=== PATIENT | male | born 1985 | race African-American/Black ===

== ENCOUNTER 2021-07-27 10:43 | Inpatient (IN) | payer OTHER ==
[~2021-07-27] VITALS: Ht 185.4 cm; Wt 84.5 kg
[2021-07-27] VITALS (7 sets, daily range): BP systolic 120–133; BP diastolic 74–85
--- NOTE | 2021-07-27 10:52 | PHYS DOC ---
Past Medical History Past Medical History: No Pertinent History (NURY ASENCIO APRN) Past Surgical History: No Surgical History (NURY ASENCIO APRN) Smoking Status: Never Smoker Alcohol Use: Occasionally Drug Use: None (NURY ASENCIO APRN) General Adult EDM: Chief Complaint: ABDOMINAL PAIN HPI: HPI: Patient is a 35-year-old male who presents today with right lower quadrant abdominal pain. 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 Patient states he was in his normal health before this incident, he states that he does not not have any fever or chills at this time, patient states that he has not been ill in the last 24 hours as well. Patient denies any past medical history, past surgical history, says he does not smoke, he does drink and occasionally and does not use any drugs. (NURY ASENCIO APRN) Review of Systems: Review of Systems: Constitutional: Denies fever or chills. [] Eyes: Denies change in visual acuity. [] HENT: Denies nasal congestion or sore throat. [] Respiratory: Denies cough or shortness of breath. [] Cardiovascular: Denies chest pain or edema. [] GI: abdominal pain, nausea, DENIES vomiting, bloody stools or diarrhea. [] : Denies dysuria. [] Musculoskeletal: Denies back pain or joint pain. [] Integument: Denies rash. [] Neurologic: Denies headache, focal weakness or sensory changes. [] Endocrine: Denies polyuria or polydipsia. [] Lymphatic: Denies swollen glands. [] Psychiatric: Denies depression or anxiety. [] (NURY ASENCIO APRN) Heart Score: C/O Chest Pain: No Risk Factors: Risk Factors: DM, Current or recent (<one month) smoker, HTN, HLP, family history of CAD, obesity. Risk Scores: Score 0 - 3: 2.5% MACE over next 6 weeks - Discharge Home Score 4 - 6: 20.3% MACE over next 6 weeks - Admit for Clinical Observation Score 7 - 10: 72.7% MACE over next 6 weeks - Early Invasive Strategies (NURY ASENCIO APRN) Physical Exam: PE: Constitutional: Well developed, well nourished, MILD distress, non-toxic appearance. [] HENT: Normocephalic, atraumatic, bilateral external ears normal, oropharynx moist, no oral exudates, nose normal. [] Eyes: PERRLA, EOMI, conjunctiva normal, no discharge. [] Neck: Normal range of motion, no tenderness, supple, no stridor. [] Cardiovascular:Heart rate regular rhythm, no murmur [] Lungs & Thorax: Bilateral breath sounds clear to auscultation [] Abdomen: Abdomen is flat and firm, patient is guarded in the right lower quadrant, patient has tenderness throughout but greater in the right lower quadrant, bowel sounds are hypoactive Skin: Warm, dry, no erythema, no rash. [] Back: No tenderness, no CVA tenderness. [] Extremities: No tenderness, no cyanosis, no clubbing, ROM intact, no edema. [] Neurologic: Alert and oriented X 3, normal motor function, normal sensory function, no focal deficits noted. [] Psychologic: Affect normal, judgement normal, mood normal. [] (NURY ASENCIO APRN) Current Patient Data: Labs: Laboratory Tests Test 07/27/21 10:55 White Blood Count 3.2 x10^3/uL Red Blood Count 5.17 x10^6/uL Hemoglobin 14.4 g/dL Hematocrit 42.9 % Mean Corpuscular Volume 83 fL Mean Corpuscular Hemoglobin 28 pg Mean Corpuscular Hemoglobin Concent 34 g/dL Red Cell Distribution Width 13.6 % Platelet Count 123 x10^3/uL Neutrophils (%) (Auto) 60 % Lymphocytes (%) (Auto) 29 % Monocytes (%) (Auto) 10 % Eosinophils (%) (Auto) 1 % Basophils (%) (Auto) 1 % Neutrophils # (Auto) 1.9 x10^3/uL Lymphocytes # (Auto) 0.9 x10^3/uL Monocytes # (Auto) 0.3 x10^3/uL Eosinophils # (Auto) 0.0 x10^3/uL Basophils # (Auto) 0.0 x10^3/uL Sodium Level 143 mmol/L Potassium Level 4.2 mmol/L Chloride Level 108 mmol/L Carbon Dioxide Level 25 mmol/L Anion Gap 10 Blood Urea Nitrogen 17 mg/dL Creatinine 1.1 mg/dL Estimated GFR (Cockcroft-Gault) 92.2 BUN/Creatinine Ratio 15 Glucose Level 115 mg/dL Lactic Acid Level 0.6 mmol/L Calcium Level 8.7 mg/dL Total Bilirubin Pending Aspartate Amino Transf (AST/SGOT) Pending Alanine Aminotransferase (ALT/SGPT) Pending Alkaline Phosphatase Pending Total Protein Pending Albumin Pending Albumin/Globulin Ratio Pending Current Medications Medications (Trade) Dose Ordered Sig/Nilo Route PRN Reason Start Time Stop Time Status Last Admin Dose Admin Sodium Chloride 1,000 ml @ 999 mls/hr 1X ONCE IV 07/27/21 11:00 07/27/21 12:00 07/27/21 11:12 Ondansetron HCl (Zofran) 4 mg 1X ONCE IVP 07/27/21 11:00 07/27/21 11:01 DC 07/27/21 11:10 Fentanyl Citrate (Fentanyl 2ml Vial) 50 mcg 1X ONCE IVP 07/27/21 11:00 07/27/21 11:01 DC 07/27/21 11:13 Vital Signs: Vital Signs Date Time Temp Pulse Resp B/P (MAP) Pulse Ox O2 Delivery O2 Flow Rate FiO2 07/27/21 15:35 Room Air 07/27/21 15:34 16 95 Room Air 07/27/21 15:30 98.5 73 16 128/75 99 Room Air 98.5 07/27/21 15:27 16 95 Room Air 07/27/21 15:21 16 98 Room Air 07/27/21 15:20 16 98 Room Air 07/27/21 15:15 73 16 133/78 99 Room Air 07/27/21 15:05 82 20 142/81 98 Room Air 07/27/21 15:00 77 16 141/76 99 Room Air 07/27/21 14:45 84 16 140/76 99 Simple Mask 6.0 07/27/21 14:30 97.7 85 16 140/76 99 Simple Mask 6.0 97.7 07/27/21 14:30 Mask 6.0 07/27/21 12:30 97.6 85 15 152/85 99 Room Air 97.6 07/27/21 12:16 67 16 140/90 (107) 100 07/27/21 11:13 16 99 Room Air 07/27/21 10:49 97.6 74 16 144/87 (106) 98 Room Air 97.6 Vital Signs Date Time Temp Pulse Resp B/P (MAP) Pulse Ox O2 Delivery O2 Flow Rate FiO2 07/27/21 11:13 16 99 Room Air 07/27/21 10:49 97.6 74 16 144/87 (106) 98 Room Air 97.6 (NURY ASENCIO HARDWOOD FLOOR REFINISHER) EKG: EKG: [] (NURY ASENCIO HARDWOOD FLOOR REFINISHER) Radiology/Procedures: Radiology/Procedures: REASON: RLQ PAIN PROCEDURE: CT ABDOMEN PELVIS WO CONTRAST ADDENDUM ADDENDUM #1 Addendum: There is a small focus of pneumoperitoneum in the area of the zoë hepatis/gastric antrum, consistent with a known perforated gastric antral ulcer. These findings are known to the surgeon Dr. Briseno at the time of this dictation. Electronically signed by: Jigar Saleh DO (07/27/2021 1:43 PM) [id number] ORIGINAL REPORT EXAMINATION: CT ABDOMEN+PELVIS WO INDICATION: Reason: RLQ PAIN / Spl. Instructions: / History: COMPARISON: None TECHNIQUE: CT images were acquired through the abdomen and pelvis. Sagittal and coronal reformatted series were provided. FINDINGS: Lung Bases: Lung bases are clear. Heart size normal. Abdomen: The evaluation of the solid organs is limited due to lack of IV contrast. The evaluation of bowel is limited due to lack of oral contrast. Liver: Remarkable Gallbladder & Biliary System: Unremarkable Spleen: Unremarkable Pancreas: Unremarkable Adrenal Glands: Unremarkable Kidneys: No perinephric inflammatory changes. No nephroureteral lithiasis. No hydroureteronephrosis. Bowel: Stomach is unremarkable. No evidence of bowel obstruction. There is mild wall thickening of the appendix which measures 9 mm in maximal diameter with surrounding periappendiceal inflammatory changes. Lymph Nodes: No pathologically enlarged adenopathy Vasculature: Appears normal in course and caliber. Other: No free intra-abdominal air or free fluid. Pelvis: Bladder: Unremarkable Reproductive Organs: Unremarkable Lymph Nodes: Unremarkable Other: No free pelvic fluid. Body Wall: Widemouth umbilical fat-containing hernia with a hazy appearance of the herniated mesenteric fat. Bones: No acute or suspicious osseous abnormality. IMPRESSION: 1. Findings of acute uncomplicated appendicitis. 2. Umbilical fat-containing hernia with a nonspecific hazy appearance of the herniated mesenteric fat, suspicious for age-indeterminate incarceration of the mesenteric fat. Recommend correlation with point tenderness. These findings were discussed with the ER attending at 07/27/2021 11:[address] Saleh Electronically signed by: Jigar Saleh DO (07/27/2021 11:43 AM) [id number] [] (NURY ASENCIO APRN) Course & Med Decision Making: Course & Med Decision Making Pertinent Labs and Imaging studies reviewed. (See chart for details) 1130 I received a call from radiology and they inform me that the patient's appendix does indeed look infected, I did place a call to Dr. Briseno who was informed of this patient's status, he asked that the patient be admitted to the hospitalist service and he will check on OR times. I did speak to patient and family member at the bedside and they are agreeable to admitting and for management and treatment of acute appendicitis (NURY ASENCIO APRN) Dragon Disclaimer: Dragon Disclaimer: This electronic medical record was generated, in whole or in part, using a voice recognition dictation system. (NURY ASENCIO APRN) Departure Departure Impression: Primary Impression: Appendicitis Qualified Codes: K35.30 - Acute appendicitis with localized peritonitis, without perforation or gangrene Additional Impression: Hernia, umbilical Qualified Codes: K42.9 - Umbilical hernia without obstruction or gangrene Disposition: 09 ADMITTED INPATIENT Admitting Physician: HUEY (NURY ASENCIO [employer]OD FLOOR REFINISHER) Condition: GUARDED Attending Signature Attending Signature I have reviewed the PA/[employer] SUPERVISOR's note and plan of care. I was available for consultation as needed during the patient's visit in the emergency department. I agree with the clinical impression, plan, and disposition. (EMILY RAMÍREZ DO) NURY ASENCIO APRN July 27, 2021 10:52 EMILY RAMÍREZ DO July 27, 2021 17:53
[2021-07-27] MEDS ORDERED: fentaNYL PF VIAL 100 MCG/2 ML VIAL IVP ONE (11:00)
[2021-07-27] MEDS ORDERED: IV NORMAL SALINE 1000ML BAG 1,000 ML IV ONE (11:00)
[2021-07-27] MEDS ORDERED: ONDANSETRON PF 4 MG/2 ML VIAL. IVP ONE (11:00)
[2021-07-27 11:19] LABS: BASO % 1 % (0-3); EOS % 1 % (0-3); HEMATOCRIT 42.9 % (39.0-53.0); HEMOGLOBIN 14.4 g/dL (13.0-17.5); LYMPH # 0.9 x10^3/uL (1.0-4.8); LYMPH % 29 % (24-48); MEAN CORPUSCULAR HEMOGLOBIN 28 pg (25-35); MEAN CORPUSCULAR HGB CONC 34 g/dL (31-37); MEAN CORPUSCULAR VOLUME 83 fL (79-100); MONO # 0.3 x10^3/uL (0.0-1.1); MONO % 10 % (0-9); NEUT # 1.9 x10^3/uL (1.8-7.7); NEUT % 60 % (31-73); PLATELET COUNT 123 x10^3/uL (140-400); RED BLOOD COUNT 5.17 x10^6/uL (4.30-5.70); RED CELL DISTRIBUTION WIDTH 13.6 % (11.5-14.5); WHITE BLOOD COUNT 3.2 x10^3/uL (4.0-11.0)
[2021-07-27 11:32] LABS: CALCIUM 8.7 mg/dL (8.5-10.1); CREATININE 1.1 mg/dL (0.7-1.3); GFR 92.2; POTASSIUM 4.2 mmol/L (3.5-5.1)
[2021-07-27 11:38] LABS: ALBUMIN 3.9 g/dL (3.4-5.0); ALBUMIN/GLOBULIN RATIO 0.9 (1.0-1.7); TOTAL BILIRUBIN 0.5 mg/dL (0.2-1.0); TOTAL PROTEIN 8.1 g/dL (6.4-8.2)
--- NOTE | 2021-07-27 11:45 | RAD ---
EXAMINATION: CT ABDOMEN+PELVIS WO INDICATION: Reason: RLQ PAIN / Spl. Instructions: / History: COMPARISON: None TECHNIQUE: CT images were acquired through the abdomen and pelvis. Sagittal and coronal reformatted s eries were provided. FINDINGS: Lung Bases: Lung bases are clear. Heart size normal. Abdomen: The evaluation of the solid organs is limited due to lack of IV contrast. The evaluation of bowel is limited due to lack of oral contrast. Liver: Remarkable Gallbladder & Biliary System: Unremarkable Spleen: Unremarkable Pancreas: Unremarkable Adrenal Glands: Unremarkable Kidneys: No perinephric inflammatory changes. No nephroureteral lithiasis. No hydroureteronephrosis. Bowel: Stomach is unremarkable. No evidence of bowel obstruction. There is mild wall thickening of th e appendix which measures 9 mm in maximal diameter with surrounding periappendiceal inflammatory moon ges. Lymph Nodes: No pathologically enlarged adenopathy Vasculature: Appears normal in course and caliber. Other: No free intra-abdominal air or free fluid. Pelvis: Bladder: Unremarkable Reproductive Organs: Unremarkable Lymph Nodes: Unremarkable Other: No free pelvic fluid. Body Wall: Widemouth umbilical fat-containing hernia with a hazy appearance of the herniated mesenter ic fat. Bones: No acute or suspicious osseous abnormality. IMPRESSION: 1. Findings of acute uncomplicated appendicitis. 2. Umbilical fat-containing hernia with a nonspecific hazy appearance of the herniated mesenteric fat , suspicious for age-indeterminate incarceration of the mesenteric fat. Recommend correlation with po int tenderness. These findings were discussed with the ER attending at 07/27/2021 11:[address] Saleh Electronically signed by: Jigar Saleh DO (07/27/2021 11:43 AM) [id number]
--- NOTE | 2021-07-27 11:54 | NUR ---
[facility] CALLED FOR PT INFO AT 1142. PACU CALLED AT 1151.
--- NOTE | 2021-07-27 11:55 | PDOC1 ---
History and Physical Date of Admission Date of Admission DATE: 07/27/21 TIME: 11:55 Identification/Chief Complaint Chief Complaint abdominal pain Source Source: Patient History of Present Illness History of Present Illness Mr Suresh is a 35yo male with no PMHx who presented to ED c/o right lower quadrant abdominal pain accompanied by his . 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 He pulled his vehicle over, called 911. Pain does radiate to his umbilicus and epigastrium. Rated 8/10. No vomiting, no diarrhea. He does not smoke or drink. no prior surgeries or hospitalizations. No recent travel or sick contacts. CT abdomen pelvis concerning for appendicitis Labs with WBC 3.2, Hb14.4, platelets 123, NA 143, K4.2, BUN 17, CR 1, glucose 115 acid 0.6, calcium 8.7, bilirubin 0.5, AST 22, ALT 24, alkaline phosphatase 58, rapid flu and rapid covid 19 negative Admitted for further care with surgical consultation. Given Zosyn in ED. Past Medical History Cardiovascular: No pertinent hx Pulmonary: No pertinent hx GI: No pertinent hx Past Surgical History Past Surgical History: No pertinent history Family History Family History reviewed Family History: No Significant Social History Smoke: No ALCOHOL: rare Drugs: None Current Problem List Problem List Problems Medical Problems: (1) Appendicitis Status: Acute (2) Hernia, umbilical Status: Acute Current Medications Current Medications Current Medications Sodium Chloride 1,000 ml @ 999 mls/hr 1X ONCE IV Last administered on 07/27/21at 11:12; Start 07/27/21 at 11:00; Stop 07/27/21 at 12:00 Ondansetron HCl (Zofran) 4 mg 1X ONCE IVP Last administered on 07/27/21at 11:10; Start 07/27/21 at 11:00; Stop 07/27/21 at 11:01; Status DC Fentanyl Citrate (Fentanyl 2ml Vial) 50 mcg 1X ONCE IVP Last administered on 07/27/21at 11:13; Start 07/27/21 at 11:00; Stop 07/27/21 at 11:01; Status DC Piperacillin Sod/ Tazobactam Sod (Zosyn Per Pharmacy) 1 each PRN DAILY PRN MC SEE COMMENTS; Start 07/27/21 at 12:00; Status UNV Allergies Allergies: Coded Allergies: No Known Drug Allergies (Unverified , 07/27/21) ROS General: YES: Fatigue, Malaise, Appetite; No: Chills, Night Sweats, Other PSYCHOLOGICAL ROS: No: Anxiety, Behavioral Disorder, Concentration difficultie, Decreased libido, Depression, Disorientation, Hallucinations, Hostility, Irritablity, Memory difficulties, Mood Swings, Obsessive thoughts, Physical abuse, Sexual abuse, Sleep disturbances, Suicidal ideation, Other Eyes: No Blurry vision, No Decreased vision, No Double vision, No Dry eyes, No Excessive tearing, No Eye Pain, No Itchy Eyes, No Loss of vision, No Photophobia, No Scotomata, No Uses contacts, No Uses glasses, No Other HEENT: No: Heacaches, Visual Changes, Hearing change, Nasal congestion, Nasal discharge, Oral lesions, Sinus pain, Sore Throat, Epistaxis, Sneezing, Snoring, Tinnitus, Vertigo, Vocal changes, Other ALLERGY AND IMMUNOLOGY: No: Hives, Insect Bite Sensitivity, Itchy/Watery Eyes, Nasal Congestion, Post Nasal Drip, Seasonal Allergies, Other Hematological and Lymphatic: No: Bleeding Problems, Blood Clots, Blood Transfusions, Brusing, Night Sweats, Pallor, Swollen Lymph Nodes, Other ENDOCRINE: No: Breast Changes, Galactorrhea, Hair Pattern Changes, Hot Flashes, Malaise/lethargy, Mood Swings, Palpitations, Polydipsia/polyuria, Skin Changes, Temperature Intolerance, Unexpected Weight Changes, Other Breast: No New/Changing Breast Lumps, No Nipple changes, No Nipple discharge, No Other Respiratory: No: Cough, Hemoptysis, Orthopnea, Pleuritic Pain, Shortness of breath, SOB with excertion, Sputum Changes, Stridor, Tachypnea, Wheezing, Other Cardiovascular: No Chest Pain, No Palpitations, No Orthopnea, No Paroxysmal Noc. Dyspnea, No Edema, No Lt Headedness, No Other Gastrointestinal: Yes Nausea, Yes Abdominal Pain; No Vomiting, No Diarrhea, No Constipation, No Melena, No Hematochezia, No Other Genitourinary: No Dysuria, No Frequency, No Incontinence, No Hematuria, No Retention, No Discharge, No Urgency, No Pain, No Flank Pain, No Other, No , No , No , No , No , No , No Musculoskeletal: No Gait Disturbance, No Joint Pain, No Joint Stiffness, No Joint Swelling, No Muscle Pain, No Muscular Weakness, No Pain In:, No Swelling In:, No Other Neurological: No Behavorial Changes, No Bowel/Bladder ControlChng, No Confusion, No Dizziness, No Gait Disturbance, No Headaches, No Impaired Coord/balance, No Memory Loss, No Numbness/Tingling, No Seizures, No Speech Problems, No Tremors, No Visual Changes, No Weakness, No Other Skin: No Dry Skin, No Eczema, No Hair Changes, No Lumps, No Mole Changes, No Mottling, No Nail Changes, No Pruritus, No Rash, No Skin Lesion Changes, No Other, No Acne Physical Exam General: Alert, Oriented X3, Cooperative, moderate distress HEENT: Atraumatic, PERRLA, EOMI, Mucous membr. moist/pink Lungs: Clear to auscultation, Normal air movement Heart: S1S2, RRR, no thrills, no rubs, no gallops, no murmurs Abdomen: Normal bowel sounds, Soft, No hepatosplenomegaly, No masses, Other (diffuse tenderness) Rectal Exam: not examined Extremities: No clubbing, No cyanosis, No edema, Normal pulses, No tenderness/swelling Skin: No rashes, No breakdown, No significant lesion Neuro: Normal gait, Normal speech, Strength at 5/5 X4 ext, Normal tone, Sensation intact, Cranial nerves 3-12 NL, Reflexes 2+ Psych/Mental Status: Mental status NL, Mood NL Vitals Vitals Vital Signs Date Time Temp Pulse Resp B/P (MAP) Pulse Ox O2 Delivery O2 Flow Rate FiO2 07/27/21 11:13 16 99 Room Air 07/27/21 10:49 97.6 74 144/87 (106) 97.6 Labs Labs Laboratory Tests Test 07/27/21 10:55 White Blood Count 3.2 x10^3/uL (4.0-11.0) Red Blood Count 5.17 x10^6/uL (4.30-5.70) Hemoglobin 14.4 g/dL (13.0-17.5) Hematocrit 42.9 % (39.0-53.0) Mean Corpuscular Volume 83 fL (79-100) Mean Corpuscular Hemoglobin 28 pg (25-35) Mean Corpuscular Hemoglobin Concent 34 g/dL (31-37) Red Cell Distribution Width 13.6 % (11.5-14.5) Platelet Count 123 x10^3/uL (140-400) Neutrophils (%) (Auto) 60 % (31-73) Lymphocytes (%) (Auto) 29 % (24-48) Monocytes (%) (Auto) 10 % (0-9) Eosinophils (%) (Auto) 1 % (0-3) Basophils (%) (Auto) 1 % (0-3) Neutrophils # (Auto) 1.9 x10^3/uL (1.8-7.7) Lymphocytes # (Auto) 0.9 x10^3/uL (1.0-4.8) Monocytes # (Auto) 0.3 x10^3/uL (0.0-1.1) Eosinophils # (Auto) 0.0 x10^3/uL (0.0-0.7) Basophils # (Auto) 0.0 x10^3/uL (0.0-0.2) Sodium Level 143 mmol/L (136-145) Potassium Level 4.2 mmol/L (3.5-5.1) Chloride Level 108 mmol/L (98-107) Carbon Dioxide Level 25 mmol/L (21-32) Anion Gap 10 (6-14) Blood Urea Nitrogen 17 mg/dL (8-26) Creatinine 1.1 mg/dL (0.7-1.3) Estimated GFR (Cockcroft-Gault) 92.2 BUN/Creatinine Ratio 15 (6-20) Glucose Level 115 mg/dL (70-99) Lactic Acid Level 0.6 mmol/L (0.4-2.0) Calcium Level 8.7 mg/dL (8.5-10.1) Total Bilirubin 0.5 mg/dL (0.2-1.0) Aspartate Amino Transf (AST/SGOT) 22 U/L (15-37) Alanine Aminotransferase (ALT/SGPT) 24 U/L (16-63) Alkaline Phosphatase 58 U/L (46-116) Total Protein 8.1 g/dL (6.4-8.2) Albumin 3.9 g/dL (3.4-5.0) Albumin/Globulin Ratio 0.9 (1.0-1.7) Laboratory Tests Test 07/27/21 10:55 White Blood Count 3.2 x10^3/uL (4.0-11.0) Red Blood Count 5.17 x10^6/uL (4.30-5.70) Hemoglobin 14.4 g/dL (13.0-17.5) Hematocrit 42.9 % (39.0-53.0) Mean Corpuscular Volume 83 fL (79-100) Mean Corpuscular Hemoglobin 28 pg (25-35) Mean Corpuscular Hemoglobin Concent 34 g/dL (31-37) Red Cell Distribution Width 13.6 % (11.5-14.5) Platelet Count 123 x10^3/uL (140-400) Neutrophils (%) (Auto) 60 % (31-73) Lymphocytes (%) (Auto) 29 % (24-48) Monocytes (%) (Auto) 10 % (0-9) Eosinophils (%) (Auto) 1 % (0-3) Basophils (%) (Auto) 1 % (0-3) Neutrophils # (Auto) 1.9 x10^3/uL (1.8-7.7) Lymphocytes # (Auto) 0.9 x10^3/uL (1.0-4.8) Monocytes # (Auto) 0.3 x10^3/uL (0.0-1.1) Eosinophils # (Auto) 0.0 x10^3/uL (0.0-0.7) Basophils # (Auto) 0.0 x10^3/uL (0.0-0.2) Sodium Level 143 mmol/L (136-145) Potassium Level 4.2 mmol/L (3.5-5.1) Chloride Level 108 mmol/L (98-107) Carbon Dioxide Level 25 mmol/L (21-32) Anion Gap 10 (6-14) Blood Urea Nitrogen 17 mg/dL (8-26) Creatinine 1.1 mg/dL (0.7-1.3) Estimated GFR (Cockcroft-Gault) 92.2 BUN/Creatinine Ratio 15 (6-20) Glucose Level 115 mg/dL (70-99) Lactic Acid Level 0.6 mmol/L (0.4-2.0) Calcium Level 8.7 mg/dL (8.5-10.1) Total Bilirubin 0.5 mg/dL (0.2-1.0) Aspartate Amino Transf (AST/SGOT) 22 U/L (15-37) Alanine Aminotransferase (ALT/SGPT) 24 U/L (16-63) Alkaline Phosphatase 58 U/L (46-116) Total Protein 8.1 g/dL (6.4-8.2) Albumin 3.9 g/dL (3.4-5.0) Albumin/Globulin Ratio 0.9 (1.0-1.7) Images Images CT ABDOMEN PELVIS WO CONTRAST EXAMINATION: CT ABDOMEN+PELVIS WO INDICATION: Reason: RLQ PAIN / Spl. Instructions: / History: COMPARISON: None TECHNIQUE: CT images were acquired through the abdomen and pelvis. Sagittal and coronal reformatted series were provided. FINDINGS: Lung Bases: Lung bases are clear. Heart size normal. Abdomen: The evaluation of the solid organs is limited due to lack of IV contrast. The evaluation of bowel is limited due to lack of oral contrast. Liver: Remarkable Gallbladder & Biliary System: Unremarkable Spleen: Unremarkable Pancreas: Unremarkable Adrenal Glands: Unremarkable Kidneys: No perinephric inflammatory changes. No nephroureteral lithiasis. No hydroureteronephrosis. Bowel: Stomach is unremarkable. No evidence of bowel obstruction. There is mild wall thickening of the appendix which measures 9 mm in maximal diameter with surrounding periappendiceal inflammatory changes. Lymph Nodes: No pathologically enlarged adenopathy Vasculature: Appears normal in course and caliber. Other: No free intra-abdominal air or free fluid. Pelvis: Bladder: Unremarkable Reproductive Organs: Unremarkable Lymph Nodes: Unremarkable Other: No free pelvic fluid. Body Wall: Widemouth umbilical fat-containing hernia with a hazy appearance of the herniated mesenteric fat. Bones: No acute or suspicious osseous abnormality. IMPRESSION: 1. Findings of acute uncomplicated appendicitis. 2. Umbilical fat-containing hernia with a nonspecific hazy appearance of the herniated mesenteric fat, suspicious for age-indeterminate incarceration of the mesenteric fat. Recommend correlation with point tenderness. VTE Prophylaxis Ordered VTE Prophylaxis Devices: Yes VTE Pharmacological Prophylaxi: No Assessment/Plan Assessment/Plan Intractable abdominal pain - concerning for appendicitis. NPO, IV zosyn, consult general surgery, IV antiemetic, IV pain medication Leukopenia - likely normal variant Thrombocytopenia - no clear etiology, will monitor FEN - NPO PPX - ambulatory FULL CODE Dispo - inpatient Justifications for Admission Other Justification NADEEN PEARCE MD July 27, 2021 11:55
[2021-07-27] MEDS ORDERED: PIP/TAZO PER PHARMACY MC PRN (12:00)
[2021-07-27] MEDS ORDERED: PIPERACILLIN/TAZOBACTAM 3.375 GM in IV NORMAL SALINE 50ML 50 ML IV ONE (12:00)
[2021-07-27] MEDS ORDERED: fentaNYL PF VIAL 100 MCG/2 ML VIAL ONE ×2 (12:08→15:16)
[2021-07-27] MEDS ORDERED: DEXAMETHASONE SOD PHOS 4 MG/ML VIAL ONE (12:09)
[2021-07-27] MEDS ORDERED: KETOROLAC 30 MG/ML VIAL. ONE (12:09)
[2021-07-27] MEDS ORDERED: ONDANSETRON PF 4 MG/2 ML VIAL. ONE (12:09)
[2021-07-27] MEDS ORDERED: PROPOFOL 10 MG/ML (20ML) VIAL. IV ONE (12:09)
[2021-07-27] MEDS ORDERED: ROCURONIUM 50 MG/5 ML VIAL. ONE (12:10)
[2021-07-27] MEDS ORDERED: MIDAZOLAM HCL/PF 2 MG/2 ML VIAL. ONE (12:11)
[2021-07-27] MEDS ORDERED: FAMOTIDINE 20 MG/2 ML VIAL ONE (12:15)
[2021-07-27] MEDS ORDERED: GLYCOPYRROLATE 1 MG/5 ML VIAL. ONE (12:17)
[2021-07-27] MEDS ORDERED: NEOSTIGMINE METHYLSULFATE 5 MG/5 ML SYRINGE. ONE (12:17)
[2021-07-27 12:20] LABS: INFLUENZA A PATIENT NEGATIVE (NEGATIVE); INFLUENZA B PATIENT NEGATIVE (NEGATIVE)
[2021-07-27] MEDS ORDERED: BUPIVACAINE-EPI 0.5% 30 ML VIAL KIT. ONE (12:41)
--- NOTE | 2021-07-27 12:43 | PDOC2 ---
CONSULT Date of Consult Date of Consult DATE: 07/27/21 TIME: 12:41 History of Present Illness Reason for Visit: The patient is a 35-year-old male who reported to the emergency department today with abdominal pain. The pain is somewhat diffuse and located in the mid abdomen. He does report pain in the right lower quadrant as well. He denies any nausea vomiting or fever chills. The emergency room evaluation is consistent with acute appendicitis. Past Medical History Past Medical History He denies Past Surgical History Past Surgical History He denies Social History No ALCOHOL: none Current Problem List Problem List Problems Medical Problems: (1) Appendicitis Status: Acute (2) Hernia, umbilical Status: Acute Current Medications Current Medications Current Medications Sodium Chloride 1,000 ml @ 999 mls/hr 1X ONCE IV Last administered on 07/27/21at 11:12; Start 07/27/21 at 11:00; Stop 07/27/21 at 12:00; Status DC Ondansetron HCl (Zofran) 4 mg 1X ONCE IVP Last administered on 07/27/21at 11:10; Start 07/27/21 at 11:00; Stop 07/27/21 at 11:01; Status DC Fentanyl Citrate (Fentanyl 2ml Vial) 50 mcg 1X ONCE IVP Last administered on 07/27/21at 11:13; Start 07/27/21 at 11:00; Stop 07/27/21 at 11:01; Status DC Piperacillin Sod/ Tazobactam Sod (Zosyn Per Pharmacy) 1 each PRN DAILY PRN MC SEE COMMENTS; Start 07/27/21 at 12:00; Status UNV Piperacillin Sod/ Tazobactam Sod 3.375 gm/Sodium Chloride 50 ml @ 100 mls/hr 1X ONCE IV Last administered on 07/27/21at 12:15; Start 07/27/21 at 12:00; Stop 07/27/21 at 12:29; Status DC Fentanyl Citrate (Fentanyl 2ml Vial) 100 mcg STK-MED ONCE .ROUTE ; Start 07/27/21 at 12:08; Stop 07/27/21 at 12:09; Status DC Propofol (Diprivan) 200 mg STK-MED ONCE IV ; Start 07/27/21 at 12:09; Stop 07/27/21 at 12:09; Status DC Dexamethasone Sodium Phosphate (Decadron) 4 mg STK-MED ONCE .ROUTE ; Start 07/27/21 at 12:09; Stop 07/27/21 at 12:09; Status DC Ketorolac Tromethamine (Toradol 30mg Vial) 30 mg STK-MED ONCE .ROUTE ; Start 07/27/21 at 12:09; Stop 07/27/21 at 12:09; Status DC Ondansetron HCl (Zofran) 4 mg STK-MED ONCE .ROUTE ; Start 07/27/21 at 12:09; Stop 07/27/21 at 12:09; Status DC Rocuronium [place] (Zemuron) 50 mg STK-MED ONCE .ROUTE ; Start 07/27/21 at 12:10; Stop 07/27/21 at 12:10; Status DC Midazolam HCl (Versed) 2 mg STK-MED ONCE .ROUTE ; Start 07/27/21 at 12:11; Stop 07/27/21 at 12:12; Status DC Famotidine (Pepcid Vial) 20 mg STK-MED ONCE .ROUTE ; Start 07/27/21 at 12:15; Stop 07/27/21 at 12:15; Status DC Neostigmine [place] (Neostigmine Methylsulfate) 5 mg STK-MED ONCE .ROUTE ; Start 07/27/21 at 12:17; Stop 07/27/21 at 12:17; Status DC Glycopyrrolate (Robinul) 1 mg STK-MED ONCE .ROUTE ; Start 07/27/21 at 12:17; Stop 07/27/21 at 12:17; Status DC Allergies Allergies: Coded Allergies: No Known Drug Allergies (Unverified , 07/27/21) ROS General: No: Chills, Night Sweats, Fatigue, Malaise, Appetite, Other PSYCHOLOGICAL ROS: No: Anxiety, Behavioral Disorder, Concentration difficultie, Decreased libido, Depression, Disorientation, Hallucinations, Hostility, Irritablity, Memory difficulties, Mood Swings, Obsessive thoughts, Physical abuse, Sexual abuse, Sleep disturbances, Suicidal ideation, Other Eyes: No Blurry vision, No Decreased vision, No Double vision, No Dry eyes, No Excessive tearing, No Eye Pain, No Itchy Eyes, No Loss of vision, No Photophobia, No Scotomata, No Uses contacts, No Uses glasses, No Other HEENT: No: Heacaches, Visual Changes, Hearing change, Nasal congestion, Nasal discharge, Oral lesions, Sinus pain, Sore Throat, Epistaxis, Sneezing, Snoring, Tinnitus, Vertigo, Vocal changes, Other ALLERGY AND IMMUNOLOGY: No: Hives, Insect Bite Sensitivity, Itchy/Watery Eyes, Nasal Congestion, Post Nasal Drip, Seasonal Allergies, Other Hematological and Lymphatic: No: Bleeding Problems, Blood Clots, Blood Transfusions, Brusing, Night Sweats, Pallor, Swollen Lymph Nodes, Other Breast: No New/Changing Breast Lumps, No Nipple changes, No Nipple discharge, No Other Respiratory: No: Cough, Hemoptysis, Orthopnea, Pleuritic Pain, Shortness of breath, SOB with excertion, Sputum Changes, Stridor, Tachypnea, Wheezing, Other Cardiovascular: No Chest Pain, No Palpitations, No Orthopnea, No Paroxysmal Noc. Dyspnea, No Edema, No Lt Headedness, No Other Gastrointestinal: Yes Abdominal Pain Genitourinary: No Dysuria, No Frequency, No Incontinence, No Hematuria, No Retention, No Discharge, No Urgency, No Pain, No Flank Pain, No Other, No , No , No , No , No , No , No Musculoskeletal: No Gait Disturbance, No Joint Pain, No Joint Stiffness, No Joint Swelling, No Muscle Pain, No Muscular Weakness, No Pain In:, No Swelling In:, No Other Neurological: No Behavorial Changes, No Bowel/Bladder ControlChng, No Confusion, No Dizziness, No Gait Disturbance, No Headaches, No Impaired Coord/balance, No Memory Loss, No Numbness/Tingling, No Seizures, No Speech Problems, No Tremors, No Visual Changes, No Weakness, No Other Skin: No Dry Skin, No Eczema, No Hair Changes, No Lumps, No Mole Changes, No Mottling, No Nail Changes, No Pruritus, No Rash, No Skin Lesion Changes, No Other, No Acne Physical Exam General: Alert, Oriented X3 Lungs: Clear to auscultation Abdomen: Soft (Tender diffusely, worse in the right lower quadrant with guarding) Extremities: No clubbing, No cyanosis Skin: No rashes Neuro: Normal speech Psych/Mental Status: Mental status NL MUSCULOSKELETAL: No joint tenderness, No deformity Vitals VITALS Vital Signs Date Time Temp Pulse Resp B/P (MAP) Pulse Ox O2 Delivery O2 Flow Rate FiO2 5/27/22 12:16 67 16 140/90 (107) 100 07/27/21 11:13 Room Air 07/27/21 10:49 97.6 97.6 Labs Labs Laboratory Tests Test 07/27/21 10:55 07/27/21 11:50 White Blood Count 3.2 x10^3/uL (4.0-11.0) Red Blood Count 5.17 x10^6/uL (4.30-5.70) Hemoglobin 14.4 g/dL (13.0-17.5) Hematocrit 42.9 % (39.0-53.0) Mean Corpuscular Volume 83 fL (79-100) Mean Corpuscular Hemoglobin 28 pg (25-35) Mean Corpuscular Hemoglobin Concent 34 g/dL (31-37) Red Cell Distribution Width 13.6 % (11.5-14.5) Platelet Count 123 x10^3/uL (140-400) Neutrophils (%) (Auto) 60 % (31-73) Lymphocytes (%) (Auto) 29 % (24-48) Monocytes (%) (Auto) 10 % (0-9) Eosinophils (%) (Auto) 1 % (0-3) Basophils (%) (Auto) 1 % (0-3) Neutrophils # (Auto) 1.9 x10^3/uL (1.8-7.7) Lymphocytes # (Auto) 0.9 x10^3/uL (1.0-4.8) Monocytes # (Auto) 0.3 x10^3/uL (0.0-1.1) Eosinophils # (Auto) 0.0 x10^3/uL (0.0-0.7) Basophils # (Auto) 0.0 x10^3/uL (0.0-0.2) Sodium Level 143 mmol/L (136-145) Potassium Level 4.2 mmol/L (3.5-5.1) Chloride Level 108 mmol/L (98-107) Carbon Dioxide Level 25 mmol/L (21-32) Anion Gap 10 (6-14) Blood Urea Nitrogen 17 mg/dL (8-26) Creatinine 1.1 mg/dL (0.7-1.3) Estimated GFR (Cockcroft-Gault) 92.2 BUN/Creatinine Ratio 15 (6-20) Glucose Level 115 mg/dL (70-99) Lactic Acid Level 0.6 mmol/L (0.4-2.0) Calcium Level 8.7 mg/dL (8.5-10.1) Total Bilirubin 0.5 mg/dL (0.2-1.0) Aspartate Amino Transf (AST/SGOT) 22 U/L (15-37) Alanine Aminotransferase (ALT/SGPT) 24 U/L (16-63) Alkaline Phosphatase 58 U/L (46-116) Total Protein 8.1 g/dL (6.4-8.2) Albumin 3.9 g/dL (3.4-5.0) Albumin/Globulin Ratio 0.9 (1.0-1.7) Influenza Type A Antigen Negative (NEGATIVE) Influenza Type B Antigen Negative (NEGATIVE) SARS-CoV-2 Antigen (Rapid) Negative (NEGATIVE) Laboratory Tests Test 07/27/21 10:55 07/27/21 11:50 White Blood Count 3.2 x10^3/uL (4.0-11.0) Red Blood Count 5.17 x10^6/uL (4.30-5.70) Hemoglobin 14.4 g/dL (13.0-17.5) Hematocrit 42.9 % (39.0-53.0) Mean Corpuscular Volume 83 fL (79-100) Mean Corpuscular Hemoglobin 28 pg (25-35) Mean Corpuscular Hemoglobin Concent 34 g/dL (31-37) Red Cell Distribution Width 13.6 % (11.5-14.5) Platelet Count 123 x10^3/uL (140-400) Neutrophils (%) (Auto) 60 % (31-73) Lymphocytes (%) (Auto) 29 % (24-48) Monocytes (%) (Auto) 10 % (0-9) Eosinophils (%) (Auto) 1 % (0-3) Basophils (%) (Auto) 1 % (0-3) Neutrophils # (Auto) 1.9 x10^3/uL (1.8-7.7) Lymphocytes # (Auto) 0.9 x10^3/uL (1.0-4.8) Monocytes # (Auto) 0.3 x10^3/uL (0.0-1.1) Eosinophils # (Auto) 0.0 x10^3/uL (0.0-0.7) Basophils # (Auto) 0.0 x10^3/uL (0.0-0.2) Sodium Level 143 mmol/L (136-145) Potassium Level 4.2 mmol/L (3.5-5.1) Chloride Level 108 mmol/L (98-107) Carbon Dioxide Level 25 mmol/L (21-32) Anion Gap 10 (6-14) Blood Urea Nitrogen 17 mg/dL (8-26) Creatinine 1.1 mg/dL (0.7-1.3) Estimated GFR (Cockcroft-Gault) 92.2 BUN/Creatinine Ratio 15 (6-20) Glucose Level 115 mg/dL (70-99) Lactic Acid Level 0.6 mmol/L (0.4-2.0) Calcium Level 8.7 mg/dL (8.5-10.1) Total Bilirubin 0.5 mg/dL (0.2-1.0) Aspartate Amino Transf (AST/SGOT) 22 U/L (15-37) Alanine Aminotransferase (ALT/SGPT) 24 U/L (16-63) Alkaline Phosphatase 58 U/L (46-116) Total Protein 8.1 g/dL (6.4-8.2) Albumin 3.9 g/dL (3.4-5.0) Albumin/Globulin Ratio 0.9 (1.0-1.7) Influenza Type A Antigen Negative (NEGATIVE) Influenza Type B Antigen Negative (NEGATIVE) SARS-CoV-2 Antigen (Rapid) Negative (NEGATIVE) Images Images CT abdomen/pelvis MPRESSION: 1. Findings of acute uncomplicated appendicitis. 2. Umbilical fat-containing hernia with a nonspecific hazy appearance of the herniated mesenteric fat, suspicious for age-indeterminate incarceration of the mesenteric fat. Recommend correlation with point tenderness. Assessment/Plan Assessment/Plan Plan to proceed to the operating room for laparoscopic appendectomy. The details and risks of surgery were discussed. The risks include bleeding, infection, visceral injury, pain, anesthetic risk, negative appendectomy, potential need for additional surgery procedure. He understands and would like to proceed. SILAS RICE MD July 27, 2021 12:43
[2021-07-27] MEDS ORDERED: PROCHLORPERAZINE 10 MG/2 ML VIAL. IVP PRN (13:00)
[2021-07-27] MEDS ORDERED: HYDROmorphone 2 MG/ML INJ. IVP PRN (13:00)
[2021-07-27] MEDS ORDERED: fentaNYL PF VIAL 100 MCG/2 ML VIAL IVP PRN ×4 (13:00→22:45)
[2021-07-27] MEDS ORDERED: IV RINGERS,LACTATED 1000ML 1,000 ML IV SCH (13:00)
[2021-07-27] MEDS ORDERED: PANTOPRAZOLE IV PUSH 40 MG VIAL. IVP ONE (13:45)
[2021-07-27] MEDS ORDERED: PHENYLEPHRINE in 0.9% NACL PF 1 MG/10 ML SYRINGE. IV ONE (13:51)
[2021-07-27] MEDS ORDERED: SUCCINYLCHOLINE 200 MG/10 ML VIAL. ONE (13:52)
--- NOTE | 2021-07-27 14:28 | PDOC4 ---
Operative Note Operative Note Preoperative Diagnosis: Acute Appendicitis Postoperative Diagnosis: Perforated gastric ulcer Procedure: Laparoscopic repair of perforated gastric ulcer, laparoscopic appendectomy Surgeon: Finn Anesthesia: Gen. EBL: 10 mL Specimen: Appendix to pathology Findings: Perforated gastric ulcer, normal-appearing appendix Drains: None Complications: None Indication: The patient is a 35-year-old male who reported to the emergency dep artment with abdominal pain. An initial CT scan raise concern for appendicitis. The plan is to proceed to the operating room for surgical treatment. The risks of surgery were discussed which include bleeding, infection, visceral injury, pain, anesthetic risk, potential need for additional surgery or procedure. The patient understands and would like to proceed. Description: The patient was taken to the operating room and placed supine on the operating table. Gen. anesthesia was performed. The abdomen was prepped with ChloraPrep and draped in a standard surgical manner. A small incision was made in the patient's left abdomen through to visualize 5 mm trocar was inserted. A pneumoperitoneum was created and the laparoscope introduced. In the left lower quadrant a 5 mm trocar was inserted. In the suprapubic region a 12 mm trocar was inserted. Initial inspection showed diffuse peritonitis which was not expected with the presumed diagnosis. The appendix was identified and appeared normal. In the pelvis there was a small amount of turbid fluid present. In the upper abdomen we were able to identify a focal area of perforation in the distal stomach near the pylorus. We did elect to proceed with an appendectomy. The mesoappendix was bluntly from the appendix. The mesoappendix was controlled using several clips and it was divided. The appendix was then amputated off the cecum using an Endo JOSH 45 stapling device. The appendix was then placed in an endoscopic bag and extracted at the suprapubic incision site. An additional 11 mm trocar was placed in the left upper quadrant and a 5 mm trocar was placed in the right upper quadrant. The perforated ulcer was closed primarily using interrupted 2-0 Vicryl sutures. The abdominal cavity was then irrigated with sterile saline. There was no evidence of any further contamination. The remaining ports were removed and the pneumoperitoneum was relieved. The skin at all incision sites was closed with 4-0 Monocryl. Steri- Strips and dressings were applied. The patient tolerated the procedure well and was sent to the recovery room in stable condition. At the end of the case all counts were correct. SILAS RICE MD July 27, 2021 14:28
[2021-07-27] MEDS ORDERED: MORPHINE SULFATE 2 MG/ML INJ. ONE (15:16)
[2021-07-27] MEDS: fentaNYL PF VIAL 100 MCG/2 ML VIAL IVP PRN ×2 (15:20→15:27)
[2021-07-27] MEDS: MORPHINE SULFATE 2 MG/ML INJ. IVP PRN ×2 (15:21→15:34)
[2021-07-27] MEDS: PANTOPRAZOLE SODIUM IV DRIP 80 MG in IV NORMAL SALINE 100ML 100 ML IV SCH ×2 (16:18→22:41)
[2021-07-27] MEDS: PIPERACILLIN/TAZOBACTAM 3.375 GM in IV NORMAL SALINE 50ML 50 ML IV SCH (17:28)
[2021-07-27] MEDS ORDERED: oxyCODONE/APAP 5/325 1 TAB TABLET PO PRN (18:15)
[2021-07-27] MEDS ORDERED: MORPHINE SULFATE 10 MG/ML VIAL. IVP PRN (18:15)
[2021-07-27] MEDS ORDERED: oxyCODONE/APAP 7.5/325 1 TAB TABLET PO PRN (18:15)
[2021-07-27] MEDS ORDERED: HYDROcodone/APAP 7.5/325MG 1 TAB TABLET PO PRN (18:15)
[2021-07-27] MEDS ORDERED: MORPHINE SULFATE 4 MG/ML INJ. IV PRN (18:15)
[2021-07-27] MEDS ORDERED: HYDROcodone/APAP 5/325MG 1 TAB TABLET PO PRN ×2 (18:15)
[2021-07-27] MEDS ORDERED: BISACODYL 10 MG SUPP.RECT. PR PRN (22:45)
[2021-07-27] MEDS ORDERED: ONDANSETRON PF 4 MG/2 ML VIAL. IVP PRN (22:45)
[2021-07-27] MEDS ORDERED: ACETAMINOPHEN 650 MG SUPP.RECT. PR PRN (22:45)
[2021-07-28] VITALS (7 sets, daily range): BP systolic 118–147; BP diastolic 72–85
[2021-07-28] MEDS: PIPERACILLIN/TAZOBACTAM 3.375 GM in IV NORMAL SALINE 50ML 50 ML IV SCH ×4 (00:03→18:00)
[2021-07-28 07:43] LABS: BASO % 0 % (0-3); EOS % 0 % (0-3); HEMOGLOBIN 13.1 g/dL (13.0-17.5); LYMPH # 0.8 x10^3/uL (1.0-4.8); LYMPH % 11 % (24-48); MEAN CORPUSCULAR HEMOGLOBIN 28 pg (25-35); MEAN CORPUSCULAR HGB CONC 34 g/dL (31-37); MEAN CORPUSCULAR VOLUME 82 fL (79-100); MONO # 0.6 x10^3/uL (0.0-1.1); MONO % 8 % (0-9); NEUT # 5.7 x10^3/uL (1.8-7.7); NEUT % 80 % (31-73); PLATELET COUNT 130 x10^3/uL (140-400); RED BLOOD COUNT 4.74 x10^6/uL (4.30-5.70); RED CELL DISTRIBUTION WIDTH 13.9 % (11.5-14.5); WHITE BLOOD COUNT 7.1 x10^3/uL (4.0-11.0)
[2021-07-28 08:04] LABS: ALBUMIN 3.2 g/dL (3.4-5.0); ALBUMIN/GLOBULIN RATIO 0.8 (1.0-1.7); CALCIUM 8.4 mg/dL (8.5-10.1); CREATININE 1.1 mg/dL (0.7-1.3); GFR 92.2; POTASSIUM 3.9 mmol/L (3.5-5.1); TOTAL BILIRUBIN 0.9 mg/dL (0.2-1.0)
[2021-07-28] MEDS: PANTOPRAZOLE IV PUSH 40 MG VIAL. IVP SCH (08:08)
[2021-07-28] MEDS: IV NORMAL SALINE 1000ML BAG 1,000 ML IV SCH (12:00)
--- NOTE | 2021-07-28 13:28 | PDOC ---
[facility] PROGRESS NOTE Date of Service DOS: DATE: 07/28/21 TIME: 13:25 Chief Complaint Chief Complaint Assessment/Plan Intractable abdominal pain -status post laparoscopic appendectomy for normal- appearing appendix and incidental finding of a gastric ulcer with primary closure. History of GERD, likely history of peptic ulcer diseasepending H. pylori testing Leukopenia - likely normal variant Thrombocytopenia - no clear etiology, will monitor Continue Protonix Continue IV Zosyn Continue IV fluids while n.p.o. Will defer to surgery for advancing diet IV pain control Continue NGT to [facility] - NPO PPX - ambulatory FULL CODE Dispo - inpatient History of Present Illness History of Present Illness 35yo male with no PMHx who presented to ED c/o right lower quadrant abdominal pain accompanied by his . 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 He pulled his vehicle over, called 911. Pain does radiate to his umbilicus and epigastrium. Rated 8/10. No vomiting, no diarrhea. He does not smoke or drink. no prior surgeries or hospitalizations. No recent travel or sick contacts. CT abdomen pelvis concerning for appendicitis Labs with WBC 3.2, Hb14.4, platelets 123, NA 143, K4.2, BUN 17, CR 1, glucose 115 acid 0.6, calcium 8.7, bilirubin 0.5, AST 22, ALT 24, alkaline phosphatase 58, rapid flu and rapid covid 19 negative Admitted for further care with surgical consultation. Given Zosyn in ED. 07/20/2021 No acute events overnight. Patient seen examined bedside. Patient pain is well controlled. NG tube to MARIAH MADRIGAL. Upon further questioning patient states that he had never taken any ibuprofen or and is not a alcoholic. He has had heartburn for multiple years in which he does take omeprazole or Prilosec as needed whenever his heartburn is severe. Patient's chart, labs, images were reviewed and discussed with RN Vitals/I&O Vitals/I&O: Vital Signs Date Time Temp Pulse Resp B/P (MAP) Pulse Ox O2 Delivery O2 Flow Rate FiO2 07/28/21 11:00 98.1 69 19 118/78 (91) 97 Room Air 98.1 07/28/21 10:07 6.0 I & O 5/07/27/21 07/28/21 15:00 23:00 07:00 Intake Total 2550 ml 300 ml Output Total 85 ml 10 ml 300 ml Balance 2465 ml 290 ml -300 ml Physical Exam General: Alert, Oriented X3, Cooperative, moderate distress Abdomen: Normal bowel sounds, Soft, No hepatosplenomegaly, No masses, Other (diffuse tenderness) Extremities: No clubbing, No cyanosis, No edema, Normal pulses, No tender ness/swelling Skin: No rashes, No breakdown, No significant lesion Labs Labs: Laboratory Tests Test 07/28/21 06:27 White Blood Count 7.1 x10^3/uL (4.0-11.0) Red Blood Count 4.74 x10^6/uL (4.30-5.70) Hemoglobin 13.1 g/dL (13.0-17.5) Hematocrit 39.0 % (39.0-53.0) Mean Corpuscular Volume 82 fL (79-100) Mean Corpuscular Hemoglobin 28 pg (25-35) Mean Corpuscular Hemoglobin Concent 34 g/dL (31-37) Red Cell Distribution Width 13.9 % (11.5-14.5) Platelet Count 130 x10^3/uL (140-400) Neutrophils (%) (Auto) 80 % (31-73) Lymphocytes (%) (Auto) 11 % (24-48) Monocytes (%) (Auto) 8 % (0-9) Eosinophils (%) (Auto) 0 % (0-3) Basophils (%) (Auto) 0 % (0-3) Neutrophils # (Auto) 5.7 x10^3/uL (1.8-7.7) Lymphocytes # (Auto) 0.8 x10^3/uL (1.0-4.8) Monocytes # (Auto) 0.6 x10^3/uL (0.0-1.1) Eosinophils # (Auto) 0.0 x10^3/uL (0.0-0.7) Basophils # (Auto) 0.0 x10^3/uL (0.0-0.2) Sodium Level 140 mmol/L (136-145) Potassium Level 3.9 mmol/L (3.5-5.1) Chloride Level 106 mmol/L (98-107) Carbon Dioxide Level 25 mmol/L (21-32) Anion Gap 9 (6-14) Blood Urea Nitrogen 13 mg/dL (8-26) Creatinine 1.1 mg/dL (0.7-1.3) Estimated GFR (Cockcroft-Gault) 92.2 BUN/Creatinine Ratio 12 (6-20) Glucose Level 102 mg/dL (70-99) Calcium Level 8.4 mg/dL (8.5-10.1) Total Bilirubin 0.9 mg/dL (0.2-1.0) Aspartate Amino Transf (AST/SGOT) 14 U/L (15-37) Alanine Aminotransferase (ALT/SGPT) 15 U/L (16-63) Alkaline Phosphatase 45 U/L (46-116) Total Protein 7.0 g/dL (6.4-8.2) Albumin 3.2 g/dL (3.4-5.0) Albumin/Globulin Ratio 0.8 (1.0-1.7) Assessment and Plan Assessmemt and Plan Problems Medical Problems: (1) Appendicitis Status: Acute (2) Hernia, umbilical Status: Acute Comment Review of Relevant I have reviewed the following items nate (where applicable) has been applied. Medications: Current Medications Medications (Trade) Dose Ordered Sig/Nilo Route PRN Reason Start Time Stop Time Status Last Admin Dose Admin Piperacillin Sod/ Tazobactam Sod 3.375 gm/Sodium Chloride 50 ml @ 100 mls/hr Q6HRS IV 07/27/21 18:00 07/28/21 11:41 Pantoprazole Sodium (PROTONIX VIAL for IV PUSH) 40 mg 1X ONCE IVP 07/27/21 13:45 07/27/21 13:46 DC 07/27/21 14:15 Pantoprazole Sodium 80 mg/ Sodium Chloride 100 ml @ 10 mls/hr Q10H IV 07/27/21 15:00 07/28/21 06:30 DC 07/27/21 22:41 Pantoprazole Sodium (PROTONIX VIAL for IV PUSH) 40 mg DAILYAC IVP 07/28/21 07:30 07/28/21 08:08 Justifications for Admission Other Justification PHILIP SALDANA MD July 28, 2021 13:28
[2021-07-29] MEDS: IV NORMAL SALINE 1000ML BAG 1,000 ML IV SCH ×3 (00:39→13:48)
[2021-07-29] MEDS: PIPERACILLIN/TAZOBACTAM 3.375 GM in IV NORMAL SALINE 50ML 50 ML IV SCH ×4 (00:39→16:47)
[2021-07-29 03:24] VITALS: BP 125/79
[2021-07-29 07:00] VITALS: BP 115/64
[2021-07-29] MEDS: PANTOPRAZOLE IV PUSH 40 MG VIAL. IVP SCH ×2 (10:12→20:30)
[2021-07-29 11:00] VITALS: BP 139/83
--- NOTE | 2021-07-29 11:03 | PDOC ---
[facility] PROGRESS NOTE Date of Service DOS: DATE: 07/29/21 TIME: 11:02 Chief Complaint Chief Complaint Assessment/Plan Intractable abdominal pain -status post laparoscopic appendectomy for normal- appearing appendix and incidental finding of a gastric ulcer with primary closure. History of GERD, likely history of peptic ulcer diseasepending H. pylori testing Leukopenia - likely normal variant Thrombocytopenia - no clear etiology, will monitor Continue Protonix Continue IV Zosyn Continue IV fluids while n.p.o. Will defer to surgery for advancing diet IV pain control Continue NGT to [facility] FEN - NPO PPX - ambulatory FULL CODE Dispo - inpatient History of Present Illness History of Present Illness 35yo male with no PMHx who presented to ED c/o right lower quadrant abdominal pain accompanied by his . 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 He pulled his vehicle over, called 911. Pain does radiate to his umbilicus and epigastrium. Rated 8/10. No vomiting, no diarrhea. He does not smoke or drink. no prior surgeries or hospitalizations. No recent travel or sick contacts. CT abdomen pelvis concerning for appendicitis Labs with WBC 3.2, Hb14.4, platelets 123, NA 143, K4.2, BUN 17, CR 1, glucose 115 acid 0.6, calcium 8.7, bilirubin 0.5, AST 22, ALT 24, alkaline phosphatase 58, rapid flu and rapid covid 19 negative Admitted for further care with surgical consultation. Given Zosyn in ED. 07/28/2021 No acute events overnight. Patient seen examined bedside. Patient pain is well controlled. NG tube to MARIAH MADRIGAL. Upon further questioning patient states that he had never taken any ibuprofen or and is not a alcoholic. He has had heartburn for multiple years in which he does take omeprazole or Prilosec as needed whenever his heartburn is severe. Patient's chart, labs, images were reviewed and discussed with RN 07/29/2021 No acute events overnight. Patient seen examined bedside. Patient did have a bowel movement this morning. NG tube placed on clamp while ambulating. No output since surgery. Could consider deseeding NG tube. Will defer this deci romero with surgery. Patient's chart, labs, images were reviewed and discussed with RN Vitals/I&O Vitals/I&O: Vital Signs Date Time Temp Pulse Resp B/P (MAP) Pulse Ox O2 Delivery O2 Flow Rate FiO2 07/29/21 07:00 98.6 70 17 115/64 (81) 95 Room Air 98.6 07/28/21 10:07 6.0 I & O 07/28/21 07/28/21 07/29/21 15:00 23:00 07:00 Output Total 600 ml 300 ml Balance -600 ml -300 ml Physical Exam General: Alert, Oriented X3, Cooperative, moderate distress Abdomen: Normal bowel sounds, Soft, No hepatosplenomegaly, No masses, Other (diffuse tenderness) Extremities: No clubbing, No cyanosis, No edema, Normal pulses, No tenderness/swelling Skin: No rashes, No breakdown, No significant lesion Labs Labs: Laboratory Tests Test 07/28/21 20:23 Glucose (Fingerstick) 81 mg/dL (70-99) Assessment and Plan Assessmemt and Plan Problems Medical Problems: (1) Appendicitis Status: Acute (2) Hernia, umbilical Status: Acute Comment Review of Relevant I have reviewed the following items nate (where applicable) has been applied. Medications: Current Medications Medications (Trade) Dose Ordered Sig/Nilo Route PRN Reason Start Time Stop Time Status Last Admin Dose Admin Sodium Chloride 1,000 ml @ 100 mls/hr Q10H IV 07/28/21 12:00 07/29/21 00:39 Justifications for Admission Other Justification PHILIP SALDANA MD July 29, 2021 11:03
--- NOTE | 2021-07-29 12:10 | PDOC ---
PROGRESS NOTES Date of Service DATE: 07/29/21 TIME: 12:09 Subjective Subjective improving Objective Objective Vital Signs Date Time Temp Pulse Resp B/P (MAP) Pulse Ox O2 Delivery O2 Flow Rate FiO2 07/29/21 11:00 98.0 64 17 139/83 (101) 96 Room Air 98.0 07/28/21 10:07 6.0 Intake and Output 07/29/21 07:00 Output Total 900 ml Balance -900 ml Output Urine Total 900 ml Physical Exam Abdomen: Soft General: Alert, Oriented X3 Assessment Assessment Problems Medical Problems: (1) Appendicitis Status: Acute (2) Hernia, umbilical Status: Acute Plan Plan of Care Keep NG tube in today; poss DC tomorow; agree with h pylori testing; continue PPI gtt Comment Review of Relevant I have reviewed the following items nate (where applicable) has been applied. Labs Laboratory Tests Test 07/28/21 06:27 07/28/21 20:23 White Blood Count 7.1 x10^3/uL (4.0-11.0) Red Blood Count 4.74 x10^6/uL (4.30-5.70) Hemoglobin 13.1 g/dL (13.0-17.5) Hematocrit 39.0 % (39.0-53.0) Mean Corpuscular Volume 82 fL (79-100) Mean Corpuscular Hemoglobin 28 pg (25-35) Mean Corpuscular Hemoglobin Concent 34 g/dL (31-37) Red Cell Distribution Width 13.9 % (11.5-14.5) Platelet Count 130 x10^3/uL (140-400) Neutrophils (%) (Auto) 80 % (31-73) Lymphocytes (%) (Auto) 11 % (24-48) Monocytes (%) (Auto) 8 % (0-9) Eosinophils (%) (Auto) 0 % (0-3) Basophils (%) (Auto) 0 % (0-3) Neutrophils # (Auto) 5.7 x10^3/uL (1.8-7.7) Lymphocytes # (Auto) 0.8 x10^3/uL (1.0-4.8) Monocytes # (Auto) 0.6 x10^3/uL (0.0-1.1) Eosinophils # (Auto) 0.0 x10^3/uL (0.0-0.7) Basophils # (Auto) 0.0 x10^3/uL (0.0-0.2) Sodium Level 140 mmol/L (136-145) Potassium Level 3.9 mmol/L (3.5-5.1) Chloride Level 106 mmol/L (98-107) Carbon Dioxide Level 25 mmol/L (21-32) Anion Gap 9 (6-14) Blood Urea Nitrogen 13 mg/dL (8-26) Creatinine 1.1 mg/dL (0.7-1.3) Estimated GFR (Cockcroft-Gault) 92.2 BUN/Creatinine Ratio 12 (6-20) Glucose Level 102 mg/dL (70-99) Calcium Level 8.4 mg/dL (8.5-10.1) Total Bilirubin 0.9 mg/dL (0.2-1.0) Aspartate Amino Transf (AST/SGOT) 14 U/L (15-37) Alanine Aminotransferase (ALT/SGPT) 15 U/L (16-63) Alkaline Phosphatase 45 U/L (46-116) Total Protein 7.0 g/dL (6.4-8.2) Albumin 3.2 g/dL (3.4-5.0) Albumin/Globulin Ratio 0.8 (1.0-1.7) Glucose (Fingerstick) 81 mg/dL (70-99) Laboratory Tests Test 07/28/21 20:23 Glucose (Fingerstick) 81 mg/dL (70-99) Medications Current Medications Sodium Chloride 1,000 ml @ 999 mls/hr 1X ONCE IV Last administered on 07/27/21at 11:12; Start 07/27/21 at 11:00; Stop 07/27/21 at 12:00; Status DC Ondansetron HCl (Zofran) 4 mg 1X ONCE IVP Last administered on 07/27/21at 11:10; Start 07/27/21 at 11:00; Stop 07/27/21 at 11:01; Status DC Fentanyl Citrate (Fentanyl 2ml Vial) 50 mcg 1X ONCE IVP Last administered on 07/27/21at 11:13; Start 07/27/21 at 11:00; Stop 07/27/21 at 11:01; Status DC Piperacillin Sod/ Tazobactam Sod (Zosyn Per Pharmacy) 1 each PRN DAILY PRN [facility] SEE COMMENTS; Start 07/27/21 at 12:00 Piperacillin Sod/ Tazobactam Sod 3.375 gm/Sodium Chloride 50 ml @ 100 mls/hr 1X ONCE IV Last administered on 07/27/21at 12:15; Start 07/27/21 at 12:00; Stop 07/27/21 at 12:29; Status DC Fentanyl Citrate (Fentanyl 2ml Vial) 100 mcg STK-MED ONCE .ROUTE ; Start 07/27/21 at 12:08; Stop 07/27/21 at 12:09; Status DC Propofol (Diprivan) 200 mg STK-MED ONCE IV ; Start 07/27/21 at 12:09; Stop 07/27/21 at 12:09; Status DC Dexamethasone Sodium Phosphate (Decadron) 4 mg STK-MED ONCE .ROUTE ; Start 07/27/21 at 12:09; Stop 07/27/21 at 12:09; Status DC Ketorolac Tromethamine (Toradol 30mg Vial) 30 mg STK-MED ONCE .ROUTE ; Start 07/27/21 at 12:09; Stop 07/27/21 at 12:09; Status DC Ondansetron HCl (Zofran) 4 mg STK-MED ONCE .ROUTE ; Start 07/27/21 at 12:09; Stop 07/27/21 at 12:09; Status DC Rocuronium Cowan (Zemuron) 50 mg STK-MED ONCE .ROUTE ; Start 07/27/21 at 12:10; Stop 07/27/21 at 12:10; Status DC Midazolam HCl (Versed) 2 mg STK-MED ONCE .ROUTE ; Start 07/27/21 at 12:11; Stop 07/27/21 at 12:12; Status DC Famotidine (Pepcid Vial) 20 mg STK-MED ONCE .ROUTE ; Start 07/27/21 at 12:15; Stop 07/27/21 at 12:15; Status DC Neostigmine Cowan (Neostigmine Methylsulfate) 5 mg STK-MED ONCE .ROUTE ; Start 07/27/21 at 12:17; Stop 07/27/21 at 12:17; Status DC Glycopyrrolate (Robinul) 1 mg STK-MED ONCE .ROUTE ; Start 07/27/21 at 12:17; Stop 07/27/21 at 12:17; Status DC Bupivacaine HCl/ Epinephrine Bitart (Sensorcain-Epi 0.5% Kit) 30 ml STK-MED ONCE .ROUTE ; Start 07/27/21 at 12:41; Stop 07/27/21 at 12:41; Status DC Piperacillin Sod/ Tazobactam Sod 3.375 gm/Sodium Chloride 50 ml @ 100 mls/hr Q6HRS IV Last administered on 07/29/21at 10:12; Start 07/27/21 at 18:00 Fentanyl Citrate (Fentanyl 2ml Vial) 25 mcg PRN Q5MIN PRN IVP MILD PAIN 1-3; Start 07/27/21 at 13:00; Stop 07/27/21 at 18:20; Status DC Fentanyl Citrate (Fentanyl 2ml Vial) 50 mcg PRN Q5MIN PRN IVP MODERATE PAIN 4-6 Last administered on 07/27/21at 15:27; Start 07/27/21 at 13:00; Stop 07/27/21 at 18:21; Status DC Morphine Sulfate (Morphine Sulfate) 1 mg PRN Q10MIN PRN IVP SEVERE PAIN 7-10 Last administered on 07/27/21at 15:34; Start 07/27/21 at 13:00; Stop 07/27/21 at 18:21; Status DC Ringer's Solution 1,000 ml @ 30 mls/hr Q24H IV Last administered on 07/27/21at 12:52; Start 07/27/21 at 13:00; Stop 07/28/21 at 00:59; Status DC Hydromorphone HCl (Dilaudid) 0.5 mg PRN Q10MIN PRN IVP SEVERE PAIN 7-10, 2nd CHOICE; Start 07/27/21 at 13:00; Stop 07/27/21 at 18:21; Status DC Prochlorperazine Edisylate (Compazine) 5 mg PACU PRN PRN IVP NAUSEA, MRX1; Start 07/27/21 at 13:00; Stop 07/27/21 at 18:21; Status DC Pantoprazole Sodium (PROTONIX VIAL for IV PUSH) 40 mg 1X ONCE IVP Last administered on 07/27/21at 14:15; Start 07/27/21 at 13:45; Stop 07/27/21 at 13:46; Status DC Phenylephrine HCl (PHENYLEPHRINE in 0.9% NACL PF) 1 mg STK-MED ONCE IV ; Start 07/27/21 at 13:51; Stop 07/27/21 at 13:51; Status DC Succinylcholine Chloride (Anectine) 200 mg STK-MED ONCE .ROUTE ; Start 07/27/21 at 13:52; Stop 07/27/21 at 13:52; Status DC Pantoprazole Sodium 80 mg/ Sodium Chloride 100 ml @ 10 mls/hr Q10H IV Last administered on 07/27/21at 22:41; Start 07/27/21 at 15:00; Stop 07/28/21 at 06:30; Status DC Fentanyl Citrate (Fentanyl 2ml Vial) 100 mcg STK-MED ONCE .ROUTE ; Start 07/27/21 at 15:16; Stop 07/27/21 at 15:16; Status DC Morphine Sulfate (Morphine Sulfate) 2 mg STK-MED ONCE .ROUTE ; Start 07/27/21 at 15:16; Stop 07/27/21 at 15:17; Status DC Morphine Sulfate (Morphine Sulfate) 4 mg PRN Q2HR PRN IV MODERATE PAIN, 2nd CHOICE; Start 07/27/21 at 18:15 Fentanyl Citrate (Fentanyl 2ml Vial) 75 mcg PRN Q3HRS PRN IVP SEVERE PAIN; Start 07/27/21 at 18:15 Fentanyl Citrate (Fentanyl 2ml Vial) 50 mcg PRN Q2HR PRN IVP MODERATE PAIN; Start 07/27/21 at 18:15 Morphine Sulfate (Morphine Sulfate) 5 mg PRN Q2HR PRN IVP SEVERE PAIN, 2nd CHOICE; Start 07/27/21 at 18:15 Acetaminophen/ Hydrocodone Bitart (Lortab 7.5/325) 1 tab PRN Q6HRS PRN PO SEVERE PAIN; Start 07/27/21 at 18:15 Acetaminophen/ Hydrocodone Bitart (Lortab 5/325) 1 tab PRN Q4HRS PRN PO MILD TO MODERATE PAIN; Start 07/27/21 at 18:15 Acetaminophen/ Hydrocodone Bitart (Lortab 5/325) 2 tab PRN Q4HRS PRN PO MILD TO MODERATE PAIN; Start 07/27/21 at 18:15 Oxycodone/ Acetaminophen (Percocet 5/325) 1 tab PRN Q4HRS PRN PO MODERATE PAIN, 2nd CHOICE; Start 07/27/21 at 18:15 Oxycodone/ Acetaminophen (Percocet 7.5/ 325) 1 tab PRN Q4HRS PRN PO SEVERE PAIN, 2nd CHOICE; Start 07/27/21 at 18:15 Ondansetron HCl (Zofran) 4 mg PRN Q4HRS PRN IVP NAUSEA/VOMITING; Start 07/27/21 at 22:45 Fentanyl Citrate (Fentanyl 2ml Vial) 25 mcg PRN Q3HRS PRN IVP SEVERE PAIN 7-10; Start 07/27/21 at 22:45 Acetaminophen (Tylenol Supp) 650 mg PRN Q6HRS PRN NM MILD PAIN / TEMP > 100.3'F; Start 07/27/21 at 22:45 Bisacodyl (Dulcolax Supp) 10 mg PRN DAILY PRN [place] CONSTIPATION; Start 07/27/21 at 22:45 Pantoprazole Sodium (PROTONIX VIAL for IV PUSH) 40 mg DAILYAC IVP Last administered on 07/29/21at 10:12; Start 07/28/21 at 07:30 Sodium Chloride 1,000 ml @ 100 mls/hr Q10H IV Last administered on 07/29/21at 00:39; Start 07/28/21 at 12:00 Vitals/I & O Vital Sign - Last 24 Hours 07/28/21 07/28/21 07/28/21 07/28/21 15:00 19:00 20:05 23:09 Temp 98.3 98.6 98.4 98.3 98.6 98.4 Pulse 69 100 98 Resp 18 18 18 B/P (MAP) 123/76 (92) 147/85 (105) 131/82 (98) Pulse Ox 98 97 96 O2 Delivery Room Air Room Air Room Air Room Air 07/29/21 07/29/21 07/29/21 07/29/21 03:24 07:00 08:00 11:00 Temp 98.0 98.6 98.0 98.0 98.6 98.0 Pulse 89 70 64 Resp 18 17 17 B/P (MAP) 125/79 (94) 115/64 (81) 139/83 (101) Pulse Ox 95 95 96 O2 Delivery Room Air Room Air Room Air Room Air Intake and Output 07/28/21 07/28/21 07/29/21 15:00 23:00 07:00 Output Total 600 ml 300 ml Balance -600 ml -300 ml Justifications for Admission Other Justification SILAS RICE MD July 29, 2021 12:10
[2021-07-29 15:00] VITALS: BP 139/72
[2021-07-29 19:00] VITALS: BP 135/74
[2021-07-29 23:23] VITALS: BP 133/79
[2021-07-30 02:48] VITALS: BP 148/71
[2021-07-30] MEDS: IV NORMAL SALINE 1000ML BAG 1,000 ML IV SCH ×2 (04:00→10:54)
[2021-07-30] MEDS: PIPERACILLIN/TAZOBACTAM 3.375 GM in IV NORMAL SALINE 50ML 50 ML IV SCH ×4 (05:01→16:29)
[2021-07-30 07:00] VITALS: BP 115/73
[2021-07-30] MEDS: PANTOPRAZOLE IV PUSH 40 MG VIAL. IVP SCH ×2 (08:29→20:13)
[2021-07-30 11:00] VITALS: BP 138/78
--- NOTE | 2021-07-30 11:46 | PDOC ---
[facility] PROGRESS NOTE Date of Service DOS: DATE: 07/30/21 TIME: 11:45 Chief Complaint Chief Complaint Assessment/Plan Intractable abdominal pain -status post laparoscopic appendectomy for normal- appearing appendix and incidental finding of a gastric ulcer with primary closure. History of GERD, likely history of peptic ulcer diseasepending H. pylori testing Leukopenia - likely normal variant Thrombocytopenia - no clear etiology, will monitor Continue Protonix Continue IV Zosyn Continue IV fluids while n.p.o. Will defer to surgery for advancing diet IV pain control Continue NGT to LIWS FEN - NPO PPX - ambulatory FULL CODE Dispo - inpatient History of Present Illness History of Present Illness 35yo male with no PMHx who presented to ED c/o right lower quadrant abdominal pain accompanied by his . 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 He pulled his vehicle over, called 911. Pain does radiate to his umbilicus and epigastrium. Rated 8/10. No vomiting, no diarrhea. He does not smoke or drink. no prior surgeries or hospitalizations. No recent travel or sick contacts. CT abdomen pelvis concerning for appendicitis Labs with WBC 3.2, Hb14.4, platelets 123, NA 143, K4.2, BUN 17, CR 1, glucose 115 acid 0.6, calcium 8.7, bilirubin 0.5, AST 22, ALT 24, alkaline phosphatase 58, rapid flu and rapid covid 19 negative Admitted for further care with surgical consultation. Given Zosyn in ED. 07/28/2021 No acute events overnight. Patient seen examined bedside. Patient pain is well controlled. NG tube to MARIAH MADRIGAL. Upon further questioning patient states that he had never taken any ibuprofen or and is not a alcoholic. He has had heartburn for multiple years in which he does take omeprazole or Prilosec as needed whenever his heartburn is severe. Patient's chart, labs, images were reviewed and discussed with RN 07/29/2021 No acute events overnight. Patient seen examined bedside. Patient did have a bowel movement this morning. NG tube placed on clamp while ambulating. No output since surgery. Could consider deseeding NG tube. Will defer this deci romero with surgery. Patient's chart, labs, images were reviewed and discussed with RN 07/30/2021 No acute events overnight. Patient seen examined bedside. NG tube clamped. Minimal output overnight. Pain is well controlled. Plan for possible discontinuing NG tube today and possible advance diet as tolerated. Will defer this to surgery. Patient's chart, labs, images were reviewed and discussed with RN Vitals/I&O Vitals/I&O: Vital Signs Date Time Temp Pulse Resp B/P (MAP) Pulse Ox O2 Delivery O2 Flow Rate FiO2 07/30/21 07:44 Room Air 07/30/21 07:00 98.1 63 17 115/73 (87) 95 98.1 I & O 07/29/21 07/29/21 07/30/21 15:00 23:00 07:00 Intake Total 100 ml 1250 ml Output Total 950 ml 600 ml Balance 100 ml 300 ml -600 ml Physical Exam General: Alert, Oriented X3 Abdomen: Soft Extremities: No clubbing, No cyanosis, No edema, Normal pulses, No tenderness/swelling Skin: No rashes, No breakdown, No significant lesion Assessment and Plan Assessmemt and Plan Problems Medical Problems: (1) Appendicitis Status: Acute (2) Hernia, umbilical Status: Acute Comment Review of Relevant I have reviewed the following items nate (where applicable) has been applied. Medications: Current Medications Medications (Trade) Dose Ordered Sig/Nilo Route PRN Reason Start Time Stop Time Status Last Admin Dose Admin Pantoprazole Sodium (PROTONIX VIAL for IV PUSH) 40 mg BID IVP 07/29/21 21:00 07/30/21 08:29 Justifications for Admission Other Justification PHILIP SALDANA MD July 30, 2021 11:46
--- NOTE | 2021-07-30 13:36 | PDOC ---
PROGRESS NOTES Date of Service DATE: 07/30/21 TIME: 13:35 Subjective Subjective much improved, hungry Objective Objective Vital Signs Date Time Temp Pulse Resp B/P (MAP) Pulse Ox O2 Delivery O2 Flow Rate FiO2 07/30/21 11:00 98.2 66 17 138/78 (98) 95 Room Air 98.2 07/28/21 10:07 6.0 Intake and Output 07/30/21 07:00 Intake Total 1350 ml Output Total 1550 ml Balance -200 ml Intake Oral 0 ml IV Total 1350 ml Output Urine Total 400 ml Gastric Drainage Total 1150 ml Physical Exam Abdomen: Soft Assessment Assessment Problems Medical Problems: (1) Appendicitis Status: Acute (2) Hernia, umbilical Status: Acute Plan Plan of Care DC NG, try small amount of clears Comment Review of Relevant I have reviewed the following items nate (where applicable) has been applied. Labs Laboratory Tests Test 07/28/21 20:23 Glucose (Fingerstick) 81 mg/dL (70-99) Medications Current Medications Sodium Chloride 1,000 ml @ 999 mls/hr 1X ONCE IV Last administered on 07/27/21at 11:12; Start 07/27/21 at 11:00; Stop 07/27/21 at 12:00; Status DC Ondansetron HCl (Zofran) 4 mg 1X ONCE IVP Last administered on 07/27/21at 11:10; Start 07/27/21 at 11:00; Stop 07/27/21 at 11:01; Status DC Fentanyl Citrate (Fentanyl 2ml Vial) 50 mcg 1X ONCE IVP Last administered on 07/27/21at 11:13; Start 07/27/21 at 11:00; Stop 07/27/21 at 11:01; Status DC Piperacillin Sod/ Tazobactam Sod (Zosyn Per Pharmacy) 1 each PRN DAILY PRN [facility] SEE COMMENTS; Start 07/27/21 at 12:00 Piperacillin Sod/ Tazobactam Sod 3.375 gm/Sodium Chloride 50 ml @ 100 mls/hr 1X ONCE IV Last administered on 07/27/21at 12:15; Start 07/27/21 at 12:00; Stop 07/27/21 at 12:29; Status DC Fentanyl Citrate (Fentanyl 2ml Vial) 100 mcg STK-MED ONCE .ROUTE ; Start 07/27/21 at 12:08; Stop 07/27/21 at 12:09; Status DC Propofol (Diprivan) 200 mg STK-MED ONCE IV ; Start 07/27/21 at 12:09; Stop 07/27/21 at 12:09; Status DC Dexamethasone Sodium Phosphate (Decadron) 4 mg STK-MED ONCE .ROUTE ; Start 07/27/21 at 12:09; Stop 07/27/21 at 12:09; Status DC Ketorolac Tromethamine (Toradol 30mg Vial) 30 mg STK-MED ONCE .ROUTE ; Start 07/27/21 at 12:09; Stop 07/27/21 at 12:09; Status DC Ondansetron HCl (Zofran) 4 mg STK-MED ONCE .ROUTE ; Start 07/27/21 at 12:09; Stop 07/27/21 at 12:09; Status DC Rocuronium Milo (Zemuron) 50 mg STK-MED ONCE .ROUTE ; Start 07/27/21 at 12:10; Stop 07/27/21 at 12:10; Status DC Midazolam HCl (Versed) 2 mg STK-MED ONCE .ROUTE ; Start 07/27/21 at 12:11; Stop 07/27/21 at 12:12; Status DC Famotidine (Pepcid Vial) 20 mg STK-MED ONCE .ROUTE ; Start 07/27/21 at 12:15; Stop 07/27/21 at 12:15; Status DC Neostigmine Milo (Neostigmine Methylsulfate) 5 mg STK-MED ONCE .ROUTE ; Start 07/27/21 at 12:17; Stop 07/27/21 at 12:17; Status DC Glycopyrrolate (Robinul) 1 mg STK-MED ONCE .ROUTE ; Start 07/27/21 at 12:17; Stop 07/27/21 at 12:17; Status DC Bupivacaine HCl/ Epinephrine Bitart (Sensorcain-Epi 0.5% Kit) 30 ml STK-MED ONCE .ROUTE ; Start 07/27/21 at 12:41; Stop 07/27/21 at 12:41; Status DC Piperacillin Sod/ Tazobactam Sod 3.375 gm/Sodium Chloride 50 ml @ 100 mls/hr Q6HRS IV Last administered on 07/30/21at 11:19; Start 07/27/21 at 18:00 Fentanyl Citrate (Fentanyl 2ml Vial) 25 mcg PRN Q5MIN PRN IVP MILD PAIN 1-3; Start 07/27/21 at 13:00; Stop 07/27/21 at 18:20; Status DC Fentanyl Citrate (Fentanyl 2ml Vial) 50 mcg PRN Q5MIN PRN IVP MODERATE PAIN 4-6 Last administered on 07/27/21at 15:27; Start 07/27/21 at 13:00; Stop 07/27/21 at 18:21; Status DC Morphine Sulfate (Morphine Sulfate) 1 mg PRN Q10MIN PRN IVP SEVERE PAIN 7-10 Last administered on 07/27/21at 15:34; Start 07/27/21 at 13:00; Stop 07/27/21 at 18:21; Status DC Ringer's Solution 1,000 ml @ 30 mls/hr Q24H IV Last administered on 07/27/21at 12:52; Start 07/27/21 at 13:00; Stop 07/28/21 at 00:59; Status DC Hydromorphone HCl (Dilaudid) 0.5 mg PRN Q10MIN PRN IVP SEVERE PAIN 7-10, 2nd CHOICE; Start 07/27/21 at 13:00; Stop 07/27/21 at 18:21; Status DC Prochlorperazine Edisylate (Compazine) 5 mg PACU PRN PRN IVP NAUSEA, MRX1; Start 07/27/21 at 13:00; Stop 07/27/21 at 18:21; Status DC Pantoprazole Sodium (PROTONIX VIAL for IV PUSH) 40 mg 1X ONCE IVP Last administered on 07/27/21at 14:15; Start 07/27/21 at 13:45; Stop 07/27/21 at 13:46; Status DC Phenylephrine HCl (PHENYLEPHRINE in 0.9% NACL PF) 1 mg STK-MED ONCE IV ; Start 07/27/21 at 13:51; Stop 07/27/21 at 13:51; Status DC Succinylcholine Chloride (Anectine) 200 mg STK-MED ONCE .ROUTE ; Start 07/27/21 at 13:52; Stop 07/27/21 at 13:52; Status DC Pantoprazole Sodium 80 mg/ Sodium Chloride 100 ml @ 10 mls/hr Q10H IV Last administered on 07/27/21at 22:41; Start 07/27/21 at 15:00; Stop 07/28/21 at 06:30; Status DC Fentanyl Citrate (Fentanyl 2ml Vial) 100 mcg STK-MED ONCE .ROUTE ; Start 07/27/21 at 15:16; Stop 07/27/21 at 15:16; Status DC Morphine Sulfate (Morphine Sulfate) 2 mg STK-MED ONCE .ROUTE ; Start 07/27/21 at 15:16; Stop 07/27/21 at 15:17; Status DC Morphine Sulfate (Morphine Sulfate) 4 mg PRN Q2HR PRN IV MODERATE PAIN, 2nd CHOICE; Start 07/27/21 at 18:15 Fentanyl Citrate (Fentanyl 2ml Vial) 75 mcg PRN Q3HRS PRN IVP SEVERE PAIN; Start 07/27/21 at 18:15 Fentanyl Citrate (Fentanyl 2ml Vial) 50 mcg PRN Q2HR PRN IVP MODERATE PAIN; Start 07/27/21 at 18:15 Morphine Sulfate (Morphine Sulfate) 5 mg PRN Q2HR PRN IVP SEVERE PAIN, 2nd CHOICE; Start 07/27/21 at 18:15 Acetaminophen/ Hydrocodone Bitart (Lortab 7.5/325) 1 tab PRN Q6HRS PRN PO SEVERE PAIN; Start 07/27/21 at 18:15 Acetaminophen/ Hydrocodone Bitart (Lortab 5/325) 1 tab PRN Q4HRS PRN PO MILD TO MODERATE PAIN; Start 07/27/21 at 18:15 Acetaminophen/ Hydrocodone Bitart (Lortab 5/325) 2 tab PRN Q4HRS PRN PO MILD TO MODERATE PAIN; Start 07/27/21 at 18:15 Oxycodone/ Acetaminophen (Percocet 5/325) 1 tab PRN Q4HRS PRN PO MODERATE PAIN, 2nd CHOICE; Start 07/27/21 at 18:15 Oxycodone/ Acetaminophen (Percocet 7.5/ 325) 1 tab PRN Q4HRS PRN PO SEVERE PAIN, 2nd CHOICE; Start 07/27/21 at 18:15 Ondansetron HCl (Zofran) 4 mg PRN Q4HRS PRN IVP NAUSEA/VOMITING; Start 07/27/21 at 22:45 Fentanyl Citrate (Fentanyl 2ml Vial) 25 mcg PRN Q3HRS PRN IVP SEVERE PAIN 7-10; Start 07/27/21 at 22:45 Acetaminophen (Tylenol Supp) 650 mg PRN Q6HRS PRN [place] MILD PAIN / TEMP > 100.3'F; Start 07/27/21 at 22:45 Bisacodyl (Dulcolax Supp) 10 mg PRN DAILY PRN [place] CONSTIPATION; Start 07/27/21 at 22:45 Pantoprazole Sodium (PROTONIX VIAL for IV PUSH) 40 mg DAILYAC IVP Last administered on 07/29/21at 10:12; Start 07/28/21 at 07:30; Stop 07/29/21 at 12:12; Status DC Sodium Chloride 1,000 ml @ 100 mls/hr Q10H IV Last administered on 07/30/21at 10:54; Start 07/28/21 at 12:00 Pantoprazole Sodium (PROTONIX VIAL for IV PUSH) 40 mg BID IVP Last administered on 07/30/21at 08:29; Start 07/29/21 at 21:00 Vitals/I & O Vital Sign - Last 24 Hours 07/29/21 07/29/21 07/29/21 07/29/21 15:00 19:00 20:00 23:23 Temp 98.3 98.0 98.5 98.3 98.0 98.5 Pulse 58 89 94 Resp 17 17 17 B/P (MAP) 139/72 (94) 135/74 (94) 133/79 (97) Pulse Ox 96 97 98 O2 Delivery Room Air Room Air Room Air Room Air 07/30/21 07/30/21 07/30/21 07/30/21 02:48 07:00 07:44 11:00 Temp 98.7 98.1 98.2 98.7 98.1 98.2 Pulse 96 63 66 Resp 17 17 17 B/P (MAP) 148/71 (96) 115/73 (87) 138/78 (98) Pulse Ox 99 95 95 O2 Delivery Room Air Room Air Room Air Room Air Intake and Output 07/29/21 07/29/21 07/30/21 15:00 23:00 07:00 Intake Total 100 ml 1250 ml Output Total 950 ml 600 ml Balance 100 ml 300 ml -600 ml Justifications for Admission Other Justification SILAS RICE MD July 30, 2021 13:35
[2021-07-30 15:00] VITALS: BP 136/81
[2021-07-30 19:00] VITALS: BP 123/73
[2021-07-30 22:58] VITALS: BP 129/69
[2021-07-31 03:00] VITALS: BP 135/75
[2021-07-31] MEDS: PIPERACILLIN/TAZOBACTAM 3.375 GM in IV NORMAL SALINE 50ML 50 ML IV SCH ×4 (05:05→17:39)
[2021-07-31 07:00] VITALS: BP_SYST 116; BP_SYST 195; BP_DIAS 93
--- NOTE | 2021-07-31 07:40 | NUR ---
PATIENT c/o dizziness when standing. Orthostatic hypotension with BP of 77/42 standing, and 116//[address] Hassan notified, received verbal order/readback for NS 1000mL bolus to run at 500mL/hour, and rest in bed.
[2021-07-31] MEDS ORDERED: IV NORMAL SALINE 1000ML BAG 1,000 ML IV ONE (08:45)
[2021-07-31] MEDS: PANTOPRAZOLE IV PUSH 40 MG VIAL. IVP SCH ×2 (08:54→21:44)
--- NOTE | 2021-07-31 10:50 | NUR ---
Orthostatic BP 148/87, 59 lying, 67/38, [address] Hassan notified, ordered GUSTAVO hose to be applied, and for patient to stand and sit up slowly. Gustavo hose applied.
[2021-07-31] MEDS: IV NORMAL SALINE 1000ML BAG 1,000 ML IV SCH ×3 (10:55→21:57)
[2021-07-31 11:00] VITALS: BP 148/87
--- NOTE | 2021-07-31 11:03 | PDOC ---
SURGICAL PROGRESS NOTE DATE: 07/31/21 TIME: 11:00 Subjective tolerating clears no nausea pain managed + flatus Vital Signs Vital Signs Date Time Temp Pulse Resp B/P (MAP) Pulse Ox O2 Delivery O2 Flow Rate FiO2 07/31/21 07:40 Room Air 6.0 07/31/21 07:00 98.3 59 12 116/93 (101) 97 98.3 I&O Intake and Output 07/31/21 07:00 Intake Total 150 ml Output Total 301 ml Balance -151 ml Intake Oral 150 ml Output Urine Total 1 ml Gastric Drainage Total 300 ml General: Alert, Oriented X3, Cooperative Abdomen: Soft, Other (lap sites c/d/i) Problem List Problems Medical Problems: (1) Appendicitis Status: Acute (2) Hernia, umbilical Status: Acute Assessment/Plan continue PPI, advance diet to full liquids, likely home tomorrow Justicifation of Admission Dx: Justifications for Admission: Justification of Admission Dx: Yes Comments: perforated gastric ulcer KALYANI SCHNEIDER APRN July 31, 2021 11:03
--- NOTE | 2021-07-31 12:18 | PDOC ---
[facility] [facility] PROGRESS NOTE Date of Service DOS: DATE: 07/31/21 TIME: 12:17 Chief Complaint Chief Complaint Assessment/Plan Intractable abdominal pain -status post laparoscopic appendectomy for normal- appearing appendix and incidental finding of a gastric ulcer with primary closure. History of GERD, likely history of peptic ulcer diseasepending H. pylori testing Leukopenia - likely normal variant Thrombocytopenia - no clear etiology, will monitor Continue Protonix Continue IV Zosyn Continue IV fluids while n.p.o. Will defer to surgery for advancing diet IV pain control Continue NGT to LIWS FEN - NPO PPX - ambulatory FULL CODE Dispo - inpatient History of Present Illness History of Present Illness 35yo male with no PMHx who presented to ED c/o right lower quadrant abdominal pain accompanied by his . 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 He pulled his vehicle over, called 911. Pain does radiate to his umbilicus and epigastrium. Rated 8/10. No vomiting, no diarrhea. He does not smoke or drink. no prior surgeries or hospitalizations. No recent travel or sick contacts. CT abdomen pelvis concerning for appendicitis Labs with WBC 3.2, Hb14.4, platelets 123, NA 143, K4.2, BUN 17, CR 1, glucose 115 acid 0.6, calcium 8.7, bilirubin 0.5, AST 22, ALT 24, alkaline phosphatase 58, rapid flu and rapid covid 19 negative Admitted for further care with surgical consultation. Given Zosyn in ED. 07/28/2021 No acute events overnight. Patient seen examined bedside. Patient pain is well controlled. NG tube to MARIAH MADRIGAL. Upon further questioning patient states that he had never taken any ibuprofen or and is not a alcoholic. He has had heartburn for multiple years in which he does take omeprazole or Prilosec as needed whenever his heartburn is severe. Patient's chart, labs, images were reviewed and discussed with RN 07/29/2021 No acute events overnight. Patient seen examined bedside. Patient did have a bowel movement this morning. NG tube placed on clamp while ambulating. No output since surgery. Could consider deseeding NG tube. Will defer this deci romero with surgery. Patient's chart, labs, images were reviewed and discussed with RN 07/30/2021 No acute events overnight. Patient seen examined bedside. NG tube clamped. Minimal output overnight. Pain is well controlled. Plan for possible discontinuing NG tube today and possible advance diet as tolerated. Will defer this to surgery. Patient's chart, labs, images were reviewed and discussed with RN 07/31/2021 No acute events overnight. Patient seen examined bedside. NG tube discontinued. Orthostatic hypotension with 77/42 heart rate of 69 supine and while sitting blood pressure of 116/72. 1 L normal saline bolus given. Compression stockings applied. Pain is well controlled. Patient tolerating diet. Patient's chart, labs, images were reviewed and discussed with RN Vitals/I&O Vitals/I&O: Vital Signs Date Time Temp Pulse Resp B/P (MAP) Pulse Ox O2 Delivery O2 Flow Rate FiO2 07/31/21 07:40 Room Air 6.0 07/31/21 07:00 98.3 59 12 116/93 (101) 97 98.3 I & O 07/30/21 07/30/21 07/31/21 15:00 23:00 07:00 Intake Total 150 ml Output Total 300 ml 1 ml Balance -300 ml -1 ml 150 ml Physical Exam General: Alert, Oriented X3, Cooperative Abdomen: Soft, Other (lap sites c/d/i) Extremities: No clubbing, No cyanosis, No edema, Normal pulses, No tenderness/swelling Skin: No rashes, No breakdown, No significant lesion Assessment and Plan Assessmemt and Plan Problems Medical Problems: (1) Appendicitis Status: Acute (2) Hernia, umbilical Status: Acute Comment Review of Relevant I have reviewed the following items nate (where applicable) has been applied. Medications: Current Medications Medications (Trade) Dose Ordered Sig/Nilo Route PRN Reason Start Time Stop Time Status Last Admin Dose Admin Sodium Chloride 1,000 ml @ 500 mls/hr 1X ONCE IV 07/31/21 08:45 07/31/21 10:44 DC 07/31/21 08:50 Justifications for Admission Other Justification PHILIP SALDANA MD July 31, 2021 12:18
[2021-07-31 15:00] VITALS: BP 149/96
[2021-07-31 19:00] VITALS: BP 99/71
== END 2021-08-01 | disposition home or self-care (01) | DRG 326 ==
LOC: ER 10:43 → 4 NORTH 11:50 → OBSVTOIN 23:57
PROVIDERS: ADMIT Internal Medicine; ATTEND Internal Medicine
PROC: 0DQ64ZZ Repair Stomach, Percutaneous Endoscopic Approach (ICD-10-PCS; 2021-07-27)
PROC: 0DTJ4ZZ Resection of Appendix, Percutaneous Endoscopic Approach (ICD-10-PCS; principal; 2021-07-27 12:30)
DX: K35.30 Acute appendicitis with localized peritonitis, without perforation or gangrene (principal); K25.5 Chronic or unspecified gastric ulcer with perforation; D69.6 Thrombocytopenia, unspecified; D72.819 Decreased white blood cell count, unspecified; K42.9 Umbilical hernia without obstruction or gangrene
CPT/HCPCS: 36415; 74176; 80053; 82962; 83605; 85025; 87338; 87428; A4209; A4314; A4364; A4930; A6219; C9113; G0378; G0379; J0330; J1100; J1885; J2250; J2270; J2370; J2405; J2543; J2704; J2710; J3010; J3490; J7030; J7120